=== PATIENT | female | born 1960 | race African-American/Black ===

== ENCOUNTER → 2017-07-26 08:44 | Outpatient (CLI) | payer BC ==
[2011-03-07 11:36] VITALS: BMI 25.1
== END | disposition home or self-care (01) ==
LOC: D.CT 08:44
DX: R59.0 Localized enlarged lymph nodes (principal)

== ENCOUNTER 2019-03-04 08:00 | Outpatient (CLI) | payer BC ==
[2011-03-07 11:36] VITALS: BMI 25.1
== END 2019-03-04 23:59 | disposition home or self-care (01) ==
LOC: D.MAMMO 08:00
PROVIDERS: ATTEND Family Medicine
DX: Z12.31 Encounter for screening mammogram for malignant neoplasm of breast (principal)

== ENCOUNTER 2020-09-07 10:30 | Outpatient (CLI) | payer BC ==
[2011-03-07 11:36] VITALS: BMI 25.1
== END 2020-09-07 23:59 | disposition home or self-care (01) ==
LOC: D.MAMMO 10:30
PROVIDERS: ATTEND Family Medicine
DX: Z12.31 Encounter for screening mammogram for malignant neoplasm of breast (principal)